=== PATIENT | male | born 1975 | race Caucasian/White ===

== ENCOUNTER 2016-10-06 03:34 | Inpatient (IN) | payer SELFPAY ==
[2016-10-06] VITALS (8 sets, daily range): BP systolic 96–126; BP diastolic 53–72; PULSE 61–95; RESP 16–20; TEMP 96–98.5; O2SAT 96–100
[~2016-10-06] VITALS: Ht 172.7 cm; Wt 65.9 kg
[2016-10-06] MEDS ORDERED: TETANUS/DIPHTHERIA TOXOID ADULT 0.5 ML VIAL IM ONE (03:45)
[2016-10-06] MEDS ORDERED: LORazepam 2 MG/ML VIAL ONE (03:47)
[2016-10-06] MEDS ORDERED: ONDANSETRON HCL 4 MG/2 ML VIAL ONE (03:48)
--- NOTE | 2016-10-06 03:58 | PD ---
HPI Chief Complaint: Injury Time Seen by Provider: 03:40 Travel History International Travel<30 days: No Contact w/Intl Traveler<30days: No Traveled to known affect area: No History of Present Illness HPI 41-year-old male presents via EMS for evaluation laceration to the volar left forearm. It was sustained this evening when he punched through a window. He reports that he was intoxicated. At this point in time he is very anxious which is limiting examination. Last tetanus vaccination unknown. No other complaints. PFSH Past Medical History Bipolar Disorder: Yes Anxiety: Yes Reproductive: No Tetanus Vaccination: > 5 Years Influenza Vaccination: No Social History Alcohol Use: Yes Tobacco Use: Yes Substance Use: Yes (Meth) Allergies-Medications (Allergen,Severity, Reaction): Coded Allergies: Keflex (Verified Allergy, Severe, 06/18/15) Penicillin (Verified Allergy, Severe, 06/18/15) Reported Meds & Prescriptions Reported Meds & Active Scripts Active No Active Prescriptions or Reported Medications Review of Systems ROS Limitations: Intoxication Except as stated in HPI: all other systems reviewed are Neg Physical Exam Exam Limitations: Intoxication Narrative GENERAL: Well-developed well-nourished male who is quite anxious. SKIN: Warm and dry. There is a 4-5 cm laceration to the volar left forearm with obvious tendon and muscle damage. HEAD: Atraumatic. Normocephalic. EYES: Pupils equal and round. No scleral icterus. No injection or drainage. ENT: No nasal bleeding or discharge. Mucous membranes pink and moist. NECK: Trachea midline. No JVD. CARDIOVASCULAR: Regular rate and rhythm. No murmur appreciated. RESPIRATORY: No accessory muscle use. Clear to auscultation. Breath sounds equal bilaterally. GASTROINTESTINAL: Abdomen soft, non-tender, nondistended. Hepatic and splenic margins not palpable. MUSCULOSKELETAL: Skin as noted above. Unable to perform focused assessment of left hand and wrist strength secondary to patient's limited cooperation. 2+ radial pulse. Capillary refill less than 2 seconds all digits left hand. NEUROLOGICAL: Awake and alert. No obvious cranial nerve deficits. Motor grossly within normal limits. Normal speech. PSYCHIATRIC: Anxious Data Data Last Documented VS Vital Signs Date Time Temp Pulse Resp B/P Pulse Ox O2 Delivery O2 Flow Rate FiO2 10/06/16 04:31 Room Air 10/06/16 03:39 98.5 89 20 126/72 99 Orders Tetanus/Diphtheria Tox Adult (Tetanus/Di (10/06/16 03:45) Forearm (2vws) (10/06/16 ) Lorazepam Inj (Ativan Inj) (10/06/16 03:47) Ondansetron Inj (Zofran Inj) (10/06/16 03:48) Clindamycin Inj (Cleocin Inj) (10/06/16 04:00) Wound Care (10/06/16 04:06) Complete Blood Count With Diff (10/06/16 04:06) Basic Metabolic Panel (Bmp) (10/06/16 04:06) Act Partial Throm Time (Ptt) (10/06/16 04:06) Prothrombin Time / Inr (Pt) (10/06/16 04:06) NPO (10/06/16 04:06) Consult Hand Surgery (10/06/16 ) (Hub Use Only)Inp Phy Cons/Ref (10/06/16 ) Admit Order (Ed Use Only) (10/06/16 04:54) Labs Laboratory Tests Test 10/06/16 04:08 White Blood Count 9.8 TH/MM3 Red Blood Count 4.76 MIL/MM3 Hemoglobin 14.3 GM/DL Hematocrit 41.7 % Mean Corpuscular Volume 87.5 FL Mean Corpuscular Hemoglobin 30.1 PG Mean Corpuscular Hemoglobin 34.4 % Concent Red Cell Distribution Width 13.4 % Platelet Count 193 TH/MM3 Mean Platelet Volume 8.4 FL Neutrophils (%) (Auto) 56.3 % Lymphocytes (%) (Auto) 34.8 % Monocytes (%) (Auto) 4.3 % Eosinophils (%) (Auto) 4.0 % Basophils (%) (Auto) 0.6 % Neutrophils # (Auto) 5.5 TH/MM3 Lymphocytes # (Auto) 3.4 TH/MM3 Monocytes # (Auto) 0.4 TH/MM3 Eosinophils # (Auto) 0.4 TH/MM3 Basophils # (Auto) 0.1 TH/MM3 CBC Comment DIFF FINAL Differential Comment Prothrombin Time 10.2 SEC Prothromb Time International 0.9 RATIO Ratio Activated Partial 26.1 SEC Thromboplast Time Sodium Level 142 MEQ/L Potassium Level 3.9 MEQ/L Chloride Level 108 MEQ/L Carbon Dioxide Level 24.4 MEQ/L Anion Gap 10 MEQ/L Blood Urea Nitrogen 10 MG/DL Creatinine 0.85 MG/DL Estimat Glomerular Filtration 98 ML/MIN Rate Random Glucose 106 MG/DL Calcium Level 8.3 MG/DL [facility] Medical Decision Making Medical Screen Exam Complete: Yes Emergency Medical Condition: Yes Medical Record Reviewed: Yes Differential Diagnosis Tendon laceration, neurovascular laceration, muscle laceration, cutaneous laceration, retained foreign body Narrative Course The patient has a large laceration to the volar left forearm with obvious tendon and muscle damage. The wound was anesthetized and thoroughly irrigated. Local wound care provided. The patient was given a dose of clindamycin. He was given a tetanus vaccination. Discussed with on-call hand surgeon Dr. Lara who would like the patient to remain npo, he would like the patient admitted to the medical service with consultation to himself, likely operative repair today. Diagnosis Primary Impression: Laceration of left forearm with tendon involvement Qualified Code: S51.812A - Laceration of left forearm with tendon involvement , initial encounter Admitting Information Admitting Physician Requests: Observation Scripts No Active Prescriptions or Reported Meds John Bolton Oct 06, 2016 03:58 John Bolton Oct 06, 2016 03:58
[2016-10-06] MEDS ORDERED: CLINDAMYCIN INJ 600 MG in SODIUM CHLORIDE 0.9% INJ 100 ML IV ONE (04:00)
[2016-10-06 04:24] LABS: AUTOMATED NEUTROPHIL # 5.5 TH/MM3 (1.8-7.7); BASOPHIL # 0.1 TH/MM3 (0-0.2); BASOPHIL % 0.6 % (0.0-2.0); EOSINOPHIL # 0.4 TH/MM3 (0-0.4); HEMATOCRIT 41.7 % (39.0-51.0); HEMO FLAGS DIFF FINAL; LYMPH % 34.8 % (9.0-44.0); LYMPHOCYTE # 3.4 TH/MM3 (1.0-4.8); MEAN CELL VOLUME 87.5 FL (80.0-100.0); MEAN CORPUSCULAR HEMOGLOBIN 30.1 PG (27.0-34.0); MEAN CORPUSCULAR HGB CONC 34.4 % (32.0-36.0); MONO % 4.3 % (0.0-8.0); NEUT % 56.3 % (16.0-70.0); PLATELET COUNT 193 TH/MM3 (150-450); RED BLOOD COUNT 4.76 MIL/MM3 (4.50-5.90); RED CELL DISTRIBUTION WIDTH 13.4 % (11.6-17.2); WHITE BLOOD COUNT 9.8 TH/MM3 (4.0-11.0)
[2016-10-06 04:34] LABS: APTT (PATIENT) 26.1 SEC (24.3-30.1); INTERNATIONAL NORMALIZED RATIO 0.9 RATIO; PROTHROMBIN TIME - PATIENT 10.2 SEC (9.8-11.6)
[2016-10-06 04:42] LABS: BICARBONATE 24.4 MEQ/L (21.0-32.0); POTASSIUM 3.9 MEQ/L (3.5-5.1)
--- NOTE | 2016-10-06 04:49 | RADRPT ---
EXAM DATE/TIME: 10/06/2016 04:05 [facility] COMPARISON: No previous studies available for comparison. INDICATIONS : Laceration left forearm. MEDICAL HISTORY : None. SURGICAL HISTORY : None. ENCOUNTER: Initial ACUITY: 1 day PAIN SCORE: 8/10 LOCATION: Left upper extremity FINDINGS: Two view examination of the left forearm demonstrates no evidence of fracture or dislocation. Bony m ineralization is normal. Soft tissue laceration is present. CONCLUSION: 1. There is no evidence of acute fracture. Ti Easton MD on October 06, 2016 at 4:47 Board Certified Radiologist. This report was verified electronically.
[2016-10-06] MEDS ORDERED: LORazepam 2 MG/ML VIAL IM ONE (05:00)
[2016-10-06] MEDS ORDERED: ONDANSETRON HCL 4 MG/2 ML VIAL IVP PRN (05:00)
[2016-10-06] MEDS ORDERED: NALOXONE HCL 0.4 MG/ML AMP IV PRN (05:00)
[2016-10-06] MEDS ORDERED: LORazepam 2 MG TAB PO PRN (05:00)
[2016-10-06] MEDS ORDERED: SODIUM CHLORIDE 0.9% FLUSH 10 ML FLUSH IV FLUSH PRN (05:00)
[2016-10-06] MEDS ORDERED: HEPARIN SODIUM - SQ 10,000 UNITS/ML VIAL SQ SCH (05:00)
[2016-10-06] MEDS ORDERED: ACETAMINOPHEN 325 MG TAB PO PRN (05:00)
[2016-10-06] MEDS ORDERED: HYDROmorphone HCL PF 1 MG/ML VIAL IV PRN ×3 (05:00→21:45)
[2016-10-06] MEDS ORDERED: LORazepam 2 MG/ML VIAL IV PUSH PRN ×4 (05:00)
[2016-10-06] MEDS ORDERED: LORazepam 1 MG TAB PO PRN (05:00)
[2016-10-06] MEDS ORDERED: FLUMAZENIL 0.5 MG/5 ML VIAL IV PUSH PRN (05:00)
[2016-10-06] MEDS ORDERED: LORazepam 2 MG/ML VIAL IV PUSH ONE (05:15)
[2016-10-06] MEDS: D5-1/2 NS + KCL 20 MEQ INJ 1,000 ML IV SCH ×3 (05:26→22:09)
[2016-10-06 07:02] LABS: BLOOD GAS BASE EXCESS -1.5 mmol/L (-2-2); BLOOD GAS CARBOXYHEMOGLOBIN 2.9 % (0-4); BLOOD GAS HCO3 23 mmol/L (22-26); BLOOD GAS O2 HGB SATURATION 95 % (90-100); BLOOD GAS OXYGEN CONTENT 19.3 Vol % (12.0-20.0); BLOOD GAS PCO2 43 mmHg (38-42); BLOOD GAS PO2 138 mmHg (61-120); BLOOD GAS TOTAL HGB 14.4 G/DL (12.0-16.0); CRITICAL VALUE NO; DRAW SITE RT RADIAL; LITER FLOW 2 L/M; NUMBER OF ARTERIAL PUNCTURES 1; OXYGEN DEVICE NASAL CANNULA; STAT YES; TEMP CORR TO 98.6; ULNAR PULSE PRESENT
[2016-10-06] MEDS ORDERED: LACTATED RINGER'S 1000 ML INJ 1,000 ML IV ONE ×2 (07:30)
[2016-10-06] MEDS ORDERED: MULTIVITAMIN INJ 10 ML, THIAMINE INJ 100 MG, FOLIC ACID INJ 1 MG in SODIUM CHLOR 0.45% ... IV ONE (07:30)
--- NOTE | 2016-10-06 07:30 | PD.CONS ---
[facility] Service Critical Care Medicine Consult Requested By Rapid Response team Reason for Consult hypoxia, altered mental status Primary Care Physician No Primary Care Physician History of Present Illness This is a 41yM with a history of bipolar disorder, anxiety disorder, and etoh dependence who presents to the emergency department today after drinking etoh and punching through a window where he sustained tendon laceration injury to his left forearm. In the emergency department, he was agitated and combative and received 3mg ativan iv. He was admitted to the hospital for planned operative washout, debridement, and possible tendon repair today. He arrived to the floor with spo2 76% and obtundation. rapid response was called. I arrived at the rapid response, and the patient was minimally responsive. He did arouse to deep sternal rub and answered questions and followed commands. The patient was given 0.4mg narcan iv with minimal improvement. Patient is being transferred to ICU for continued management of his altered mental status and hypoxia. No additional history is obtainable from the patient. Review of Systems ROS Limitations: Clinical Condition, Intoxication, Altered Mental Status Past Family Social History Allergies: Coded Allergies: Keflex (Verified Allergy, Severe, 06/18/15) Penicillin (Verified Allergy, Severe, 06/18/15) Past Medical History Bipolar disorder Anxiety disorder Etoh dependence Past Surgical History unknown and unobtainable secondary to the clinical condition of the patient. Reported Medications unknown and unobtainable secondary to the clinical condition of the patient. Active Ordered Medications See MAR Family History unknown and unobtainable secondary to the clinical condition of the patient. Social History +etoh, +tob, +meth Physical Exam Vital Signs Vital Signs Date Time Temp Pulse Resp B/P Pulse Ox O2 Delivery O2 Flow Rate FiO2 10/06/16 07:03 98 2.00 10/06/16 04:31 Room Air 10/06/16 03:39 98.5 89 20 126/72 99 Physical Exam disheveled middle-aged male, obtunded. bloody clothes in place. equal and clear breath sounds, marked hypopnea. left forearm wrapped in alan bandage. Laboratory Laboratory Tests Test 10/06/16 10/06/16 04:08 06:50 White Blood Count 9.8 Red Blood Count 4.76 Hemoglobin 14.3 Hematocrit 41.7 Mean Corpuscular Volume 87.5 Mean Corpuscular Hemoglobin 30.1 Mean Corpuscular Hemoglobin 34.4 Concent Red Cell Distribution Width 13.4 Platelet Count 193 Mean Platelet Volume 8.4 Neutrophils (%) (Auto) 56.3 Lymphocytes (%) (Auto) 34.8 Monocytes (%) (Auto) 4.3 Eosinophils (%) (Auto) 4.0 Basophils (%) (Auto) 0.6 Neutrophils # (Auto) 5.5 Lymphocytes # (Auto) 3.4 Monocytes # (Auto) 0.4 Eosinophils # (Auto) 0.4 Basophils # (Auto) 0.1 CBC Comment DIFF FINAL Differential Comment Prothrombin Time 10.2 Prothromb Time International 0.9 Ratio Activated Partial 26.1 Thromboplast Time Sodium Level 142 Potassium Level 3.9 Chloride Level 108 Carbon Dioxide Level 24.4 Anion Gap 10 Blood Urea Nitrogen 10 Creatinine 0.85 Estimat Glomerular Filtration 98 Rate Random Glucose 106 Calcium Level 8.3 Blood Gas Puncture Site RT RADIAL Blood Gas Patient Temperature 98.6 Blood Gas HCO3 23 Blood Gas Base Excess -1.5 Blood Gas Oxygen Saturation 95 Arterial Blood pH 7.35 Arterial Blood Partial 43 Pressure CO2 Arterial Blood Partial 138 Pressure O2 Arterial Blood Oxygen Content 19.3 Arterial Blood 2.9 Carboxyhemoglobin Arterial Blood Methemoglobin 1.0 Blood Gas Hemoglobin 14.4 Oxygen Delivery Device NASAL CANNULA Blood Gas Liter Flow 2 Result Diagram: 10/06/16 0408 10/06/16 0408 Imaging Last Impressions Radius/Ulna X-Ray 10/06/16 0000 Signed Impressions: Service Date/Time: Thursday, October 06, 2016 04:05 - CONCLUSION: 1. There is no evidence of acute fracture. Ti Easton MD Assessment and Plan Assessment and Plan Assessment: 41yM with acute toxic encephalopathy and hypoxia secondary to etoh overdose and intoxication. Active Problems: Acute Toxic Encephalopathy Acute hypoxemia Etoh dependence Plan: -- transfer to ICU -- will hold off on flumazenil due to risk of seizures in patients with etoh dependence -- iv thiamine -- banana bag -- 2L LR bolus -- send etoh level, tyenol, asa levels, UDS, lft -- q1h neuro checks -- still cleared for OR for washout today. Critical Care time: 36 minutes, exclusive of separately billable procedures. Anthony Aparicio MD Oct 06, 2016 07:30
--- NOTE | 2016-10-06 07:32 | RADRPT ---
EXAM DATE/TIME: 10/06/2016 07:12 [facility] COMPARISON: No previous studies available for comparison. INDICATIONS : Halicat. MEDICAL HISTORY : None. SURGICAL HISTORY : None. ENCOUNTER: Subsequent ACUITY: 2 days PAIN SCORE: Non-responsive. LOCATION: Bilateral chest FINDINGS: Portable AP view of the chest demonstrates a normal-sized cardiac silhouette. No effusion, consolidat ion, or pneumothorax is visualized. The bones and soft tissues demonstrate no acute abnormality. Ther e is mild atelectasis at the lung bases. CONCLUSION: Mild atelectasis at the lung bases. Otherwise, no acute finding is identified. Renny Duran MD on October 06, 2016 at 7:30 Board Certified Radiologist. This report was verified electronically.
--- NOTE | 2016-10-06 08:49 | MB ---
cc: ZHANG GUO MD DATE OF CONSULTATION: 10/06/2016 REASON FOR CONSULTATION Left forearm laceration. HISTORY OF PRESENT ILLNESS The patient is a 41-year-old male with history of bipolar disorder and ETOH dependence, presented to the ED last night after puncturing through the window when he sustained laceration to the left forearm. The patient became obtunded and rapid response team was called and was transferred to the ICU. He was examined in the ICU. He is cooperative to a minimal extent, he does follow commands to a minimal extent. The patient is hemodynamically stable on examination. There is a dressing over the left forearm region. Examination after removal of dressing reveals a curvilinear laceration over the volar aspect of the mid forearm measuring about 7-8 cm with exposed tendons and muscles. He has intact capillary refill. He has intact radial pulses. The patient is able to actively flex the fingers and the thumb. Sensation appeared to be intact based on his minimal response. The patient is able to flex and extend the wrist. Strength could not be tested. X-rays of the left forearm was reviewed and shows soft tissue defect over the volar aspect of the mid forearm. No evidence of fracture noted. ASSESSMENT 41-year-old male with ETOH dependence and laceration through the left forearm volar aspect, exposed tendons. PLAN Plan will be for exploration and washout, repair of flexor tendon, possible nerve repair. Consent has been obtained by two physician's consent as the patient is not in a situation to give a formal consent. Zhang Guo MD SE/IFEOMA /8:08 AM /8:33 AM
[2016-10-06] MEDS ORDERED: THIAMINE HCL 100 MG TAB PO SCH (09:00)
[2016-10-06] MEDS: SODIUM CHLORIDE 0.9% FLUSH 10 ML FLUSH IV FLUSH SCH ×2 (09:00→22:09)
[2016-10-06] MEDS: FOLIC ACID 1 MG TAB PO SCH (09:00)
[2016-10-06] MEDS ORDERED: NEOSTIGMINE METHYLSULFATE 10 MG/10 ML VIAL IV PUSH ONE (12:00)
[2016-10-06] MEDS ORDERED: ONDANSETRON HCL 4 MG/2 ML VIAL IV PUSH ONE (12:00)
[2016-10-06] MEDS ORDERED: PROPOFOL 200 MG/20 ML AMP IV ONE (12:00)
[2016-10-06] MEDS ORDERED: SODIUM CHLOR 0.9% 250 ML INJ 250 ML IV ONE (12:00)
--- NOTE | 2016-10-06 12:28 | HHI.HP ---
HPI Service [facility] Primary Care Physician No Primary Care Physician Admission Diagnosis laceration left forearm Diagnoses: Chief Complaint: left FA laceration, altered Travel History International Travel<30 Days: No Contact w/Intl Traveler <30 Da: No Traveled to Known Affected Are: No History of Present Illness This a 41-year-old male with significant past medical history of bipolar disorder, anxiety, EtOH dependence presented to the emergency room for evaluation of laceration to the volar forearm. Apparently the patient punched through a window while intoxicated. In the emergency room, patient was agitated and combative and received 20 mg of Ativan. And surgery has been consulted and the plan is for operative washout, debridement and possible tendon repair. Apparently when he arrived on the floor he was noted hypoxic sats of 76% and obtunded. Rapid response was called and patient was responsive to deep sternal rub and answered some questions. He was given Narcan with minimal improvement. Patient was transferred to ICU for continued management and critical care has been consulted. At this time, patient is more awake, he knows is in the hospital unable to provide name. He is currently nothing by mouth awaiting to go to work. Laboratory workup completed in the emergency room was essentially unremarkable. Patient is admitted for further evaluation and treatment. Review of Systems ROS Limitations: Clinical Condition, Intoxication, Altered Mental Status Other left arm pain Past Family Social History Past Medical History Past Medical History Bipolar disorder Anxiety disorder Etoh dependence Past Surgical History unable to obtain Reported Medications Reported Meds & Active Scripts Active No Active Prescriptions or Reported Medications Allergies: Coded Allergies: Keflex (Verified Allergy, Severe, 06/18/15) Penicillin (Verified Allergy, Severe, 06/18/15) Active Ordered Medications Inpatient Medications Acetaminophen (Tylenol) 650 mg Q4H PRN PO TEMP > 100.4; Start 10/06/16 at 05:00 Clindamycin Phosphate 600 mg/ Sodium Chloride 104 ml @ 208 mls/hr ONCE ONCE IV Last administered on 10/06/16t 04:22; Start 10/06/16 at 04:00; Stop 10/06/16 at 04:29; Status DC Flumazenil (Romazicon Inj) 0.2 mg Q1M PRN IV PUSH SEE LABEL COMMENTS; Start 10/06/16 at 05:00 Folic Acid (Folate) 1 mg DAILY PO ; Start 10/06/16 at 09:00; Stop 10/11/16 at 08: 59 Heparin Sodium (Porcine) (Heparin Inj) 5,000 units Q12H SQ Last administered on 10/06/16 05:26; Start 10/06/16 at 05:00 Hydromorphone HCl (Dilaudid Pf Inj) 1 mg Q3H PRN IV Pain 6-10;if unable to take PO; Start 10/06/16 at 05:00; Stop 10/06/16 at 07:22; Status DC Lactated Ringer's (Lr 1000 ml Inj) 1,000 ml @ 999 mls/hr BOLUS ONCE IV ; Start 10/06/16 at 07:30; Stop 10/06/16 at 08:30; Status DC Lorazepam (Ativan Inj) 2 mg Q15M PRN IV PUSH CIWA > 20; Start 10/06/16 at 05:00 ; Stop 10/06/16 at 07:22; Status DC Lorazepam (Ativan) 2 mg Q2H PRN PO CIWA 11-14; Start 10/06/16 at 05:00; Stop 10/06/16 at 07:22; Status DC Lorazepam 1 mg 1 mg ONCE ONCE IV PUSH Last administered on 10/06/16 05:15; Start 10/06/16 at 05:15; Stop 10/06/16 at 05:16; Status DC Multivitamins 1 tab 1 tab DAILY PO ; Start 10/07/16 at 09:00 Multivitamins/ Thiamine HCl/ Folic Acid/Sodium Chloride (Mvi-12 Inj/ Thiamine Inj/ Folvite Inj/1/2 NS 500 ml Inj) 511.2 ml @ 125 mls/hr ONCE ONCE IV Last administered on 10/06/16 09:30; Start 10/06/16 at 07:30; Stop 10/06/16 at 11:35; Status DC Naloxone HCl (Narcan Inj) 0.4 mg UNSCH PRN IV SEE LABEL COMMENTS Last administered on 10/06/16 07:00; Start 10/06/16 at 05:00 Ondansetron HCl (Zofran Inj) 4 mg Q6H PRN IVP NAUSEA OR VOMITING; Start at 05:00 Potassium Chloride/Dextrose/ Sod Cl (D5-1/2 NS + KCl 20 Meq Inj) 1,000 ml @ 100 mls/hr Q10H IV Last administered on 10/06/16 05:26; Start 10/06/16 at 04:57 Sodium Chloride (NS Flush) 2 ml BID IV FLUSH ; Start 10/06/16 at 09:00 Tetanus/ Diphtheria Toxoids 0.5 ml 0.5 ml ONCE ONCE IM Last administered on 10/06 04:22; Start 10/06/16 at 03:45; Stop 10/06/16 at 03:46; Status DC Thiamine HCl (Vitamin B1) 100 mg DAILY PO ; Start 10/06/16 at 09:00; Stop at 09:00; Status DC Thiamine HCl 100 mg 100 mg DAILY PO ; Start 10/09/16 at 09:00 Thiamine HCl/ Sodium Chloride (Thiamine Inj/NS Inj) 101 ml @ 101 mls/hr Q24H IV ; Start 10/07/16 at 01:45; Stop 10/08/16 at 02:44 Family History Unable to obtain Social History Works as a cashier and waiter/waitress, not , has no children. Positive for tobacco abuse, + ETOH, + meth Physical Exam Vital Signs Vital Signs Date Time Temp Pulse Resp B/P Pulse Ox O2 Delivery O2 Flow Rate FiO2 10/06/16 07:03 98 2.00 10/06/16 04:31 Room Air 10/06/16 03:39 98.5 89 20 126/72 99 Physical Exam GENERAL: This is a well-nourished, well-developed patient, in no apparent distress. SKIN: No rashes, ecchymoses or lesions. Cool and dry. HEAD: Atraumatic. Normocephalic. No temporal or scalp tenderness. EYES: Pupils equal round and reactive. Extraocular motions intact. No scleral icterus. No injection or drainage. ENT: Nose without bleeding, purulent drainage or septal hematoma. Throat without erythema, tonsillar hypertrophy or exudate. Uvula midline. Airway patent. NECK: Trachea midline. No JVD or lymphadenopathy. Supple, nontender, no meningeal signs. CARDIOVASCULAR: Regular rate and rhythm without murmurs, gallops, or rubs. RESPIRATORY: Clear to auscultation. Breath sounds equal bilaterally. No wheezes , rales, or rhonchi. GASTROINTESTINAL: Abdomen soft, non-tender, nondistended. No hepato-splenomegaly , or palpable masses. No guarding. MUSCULOSKELETAL: Left forearm has a dressing that is intact. Intact sensation to left fingertips, capillary refill less than 3 seconds. No other joint abnormalities. NEUROLOGICAL: Awakes to voice, oriented 3. Somnolent but awakes to voice. No focal deficits. Laboratory Laboratory Tests Test 10/06/16 10/06/16 04:08 06:50 White Blood Count 9.8 Red Blood Count 4.76 Hemoglobin 14.3 Hematocrit 41.7 Mean Corpuscular Volume 87.5 Mean Corpuscular Hemoglobin 30.1 Mean Corpuscular Hemoglobin 34.4 Concent Red Cell Distribution Width 13.4 Platelet Count 193 Mean Platelet Volume 8.4 Neutrophils (%) (Auto) 56.3 Lymphocytes (%) (Auto) 34.8 Monocytes (%) (Auto) 4.3 Eosinophils (%) (Auto) 4.0 Basophils (%) (Auto) 0.6 Neutrophils # (Auto) 5.5 Lymphocytes # (Auto) 3.4 Monocytes # (Auto) 0.4 Eosinophils # (Auto) 0.4 Basophils # (Auto) 0.1 CBC Comment DIFF FINAL Differential Comment Prothrombin Time 10.2 Prothromb Time International 0.9 Ratio Activated Partial 26.1 Thromboplast Time Sodium Level 142 Potassium Level 3.9 Chloride Level 108 Carbon Dioxide Level 24.4 Anion Gap 10 Blood Urea Nitrogen 10 Creatinine 0.85 Estimat Glomerular Filtration 98 Rate Random Glucose 106 Calcium Level 8.3 Blood Gas Puncture Site RT RADIAL Blood Gas Patient Temperature 98.6 Blood Gas HCO3 23 Blood Gas Base Excess -1.5 Blood Gas Oxygen Saturation 95 Arterial Blood pH 7.35 Arterial Blood Partial 43 Pressure CO2 Arterial Blood Partial 138 Pressure O2 Arterial Blood Oxygen Content 19.3 Arterial Blood 2.9 Carboxyhemoglobin Arterial Blood Methemoglobin 1.0 Blood Gas Hemoglobin 14.4 Oxygen Delivery Device NASAL CANNULA Blood Gas Liter Flow 2 Result Diagram: 10/06/16 0408 10/06/16 0408 Imaging Last Impressions Radius/Ulna X-Ray 10/06/16 0000 Signed Impressions: Service Date/Time: Thursday, October 06, 2016 04:05 - CONCLUSION: 1. There is no evidence of acute fracture. Ti Easton MD Chest X-Ray 10/06/16 0000 Signed Impressions: Service Date/Time: Thursday, October 06, 2016 07:12 - CONCLUSION: Mild atelectasis at the lung bases. Otherwise, no acute finding is identified. Renny Duran MD Assessment and Plan Problem List: (1) Laceration of left forearm with tendon involvement (2) Drug-induced mood disorder (3) History of substance abuse (4) Anxiety (5) Bipolar disorder Assessment and Plan Admit to Dr. Ramírez 41 -year-old male with acute alcohol intoxication, punched window, sustained laceration of left forearm with tendon involvement. -Hand surgery has been consulted, the plan is for operative washout, debridement and possible tendon repair today -Continue with clindamycin 600 mg IV every 8 -Pain management Acute encephalopathy secondary to alcohol intoxication History of substance abuse -Continue neuro checks -MVI, thiamine -Continue with IV fluids Home medications reviewed, initiated as indicated Heparin for DVT prophylaxis Plan of care discussed with the patient, attending and registered nurse. Further management of the patient will be dependent hospital course This patient was seen by myself and Dr. Ramírez, this H/P is written on his behalf Physician Certification 2 Midnight Certification Type: Admission for Inpatient Services Order for Inpatient Services The services are ordered in accordance with Medicare regulations or non- Medicare payer requirements, as applicable. In the case of services not specified as inpatient-only, they are appropriately provided as inpatient services in accordance with the 2-midnight benchmark. Estimated LOS (days): 2 2 days is the estimated time the patient will need to remain in the hospital, assuming treatment plan goals are met and no additional complications. Post-Hospital Plan: Not yet determined Problem Qualifiers (1) Laceration of left forearm with tendon involvement: Qualified Code: S51.812A - Laceration of left forearm with tendon involvement, initial encounter (2) Bipolar disorder: Qualified Code: F31.9 - Bipolar affective disorder, remission status unspecified Ora Shankar Oct 06, 2016 12:28
[2016-10-06] MEDS: CLINDAMYCIN PHOS 600 MG/4 ML VIAL ONE ×2 (14:17→14:45)
[2016-10-06 14:44] LABS: ALT (GPT) 20 U/L (12-78); AST (GOT) 20 U/L (15-37)
[2016-10-06 14:46] LABS: ALKALINE PHOSPHATASE 84 U/L (45-117); INDIRECT BILIRUBIN 0.3 MG/DL (0.0-0.8); TOTAL BILIRUBIN ADULT 0.4 MG/DL (0.2-1.0)
[2016-10-06] MEDS ORDERED: NEOMYCIN/POLYMYXIN 1 ML G.U. IRRIGANT IR ONE (14:52)
[2016-10-06] MEDS ORDERED: LIDOCAINE HCL 2% 50 ML VIAL INFIL ONE (14:52)
[2016-10-06] MEDS ORDERED: BUPIVACAINE HCL PF 0.5% 30 ML VIAL INFIL ONE (14:52)
[2016-10-06] MEDS ORDERED: BACITRACIN TOP OINT 15 GM TUBE TOP ONE (14:52)
[2016-10-06 15:04] LABS: ACETAMINOPHEN LESS THAN 2.0 MCG/ML (10.0-30.0)
--- NOTE | 2016-10-06 16:20 | PD.OP ---
Operative Report Preoperative Diagnosis: (1) Laceration of left forearm with tendon involvement Postoperative Diagnosis: (1) Laceration of left forearm with tendon involvement Procedure: exploration, repair flexor carpi radialis tendon, palmaris longus and lacerations left forearm Anesthesia: general Surgeon: Jonas Lara Hand Crown Pouncer(s): roberto carlos Operation and Findings: complex laceration volar aspect of the midforearm laceration of the flexor carpi radialis, palmaris longus tendon, partial laceration of the FDS muscle belly Jonas Lara MD Oct 06, 2016 16:20
[2016-10-06] MEDS ORDERED: MIDAZOLAM HCL 2 MG/2 ML VIAL ONE (16:29)
[2016-10-06] MEDS ORDERED: fentaNYL CITRATE 250 MCG/5 ML AMP ONE (16:30)
--- NOTE | 2016-10-06 16:39 | MP ---
cc: ZHANG GUO MD DATE OF SURGERY: 10/06/2016. PREOPERATIVE DIAGNOSIS: Laceration left forearm with flexor tendon involvement. POSTOPERATIVE DIAGNOSIS: Laceration left forearm with laceration of the flexor carpi radialis, palmaris longus and partial laceration of the FDS muscle. OPERATIVE PROCEDURE PERFORMED: Exploration and repair flexor carpi radialis, palmaris longus and lacerations left forearm. SURGEON: Zhang Guo M.D. ANESTHESIA: General. ESTIMATED BLOOD LOSS: 10 mL TOURNIQUET TIME: 37 minutes at 250 mmHg. COMPLICATIONS: No complications. DISPOSITION: The patient was recovered sent to the recovery room in stable condition. INDICATIONS FOR THE PROCEDURE: The patient is a 41-year-old male with EtOH dependence who presented last night with a laceration of the left forearm when he punched a glass window. The patient was unable to give history. Initially he was intoxicated. He was taken to the ICU for low saturation and rapid response. On examination, he had a complex laceration over the volar aspect of the mid forearm region measuring about 7 to 8 cm and another laceration over the ulnar aspect of the forearm and over the dorsal aspect of the hand. There was evidence of exposed tendons. The patient was able to actively flex the fingers and weakness of the wrist flexion was noted. He had intact sensation and intact distal circulation with palpable pulses. The patient was consented for exploration and repair of the flexor tendons and possible repair of nerve. DESCRIPTION OF THE PROCEDURE IN DETAIL: The patient was brought to the operating room. Under general anesthesia, the left upper extremity was thoroughly prepped and draped. After limb elevation, the tourniquet was inflated to 250 mmHg. Intraoperative findings included a complex laceration over the volar aspect of the mid forearm with jagged skin edges. The flexor carpi radialis was completely transected. There was a partial transection of the palmaris longus of about 80%. There was also a partial laceration of the muscle belly of the flexor digitorum profundus. The radial artery was intact. The ulnar artery was also intact. Thorough wash was given using normal saline mixed with irrigant. About a liter of solution was used. The flexor carpi radialis was then approximated using 3-0 Ethibond stitches in a multiple cross cruciate fashion with eight strands crossing the repair site and this was then reinforced with fine nylon in a continuous circumferential fashion. The palmaris longus was then approximated using 3-0 Ethibond in a cross cruciate fashion with four strands crossing the repair site. This was reinforced with 5-0 Prolene. The tourniquet was deflated. Total tourniquet time was 37 minutes. Bleeding points were cauterized with bipolar cautery. Skin flaps were then approximated using 4-0 nylon in a horizontal mattress interrupted fashion. I was able to obtain complete closure with the flap. The patient had two more lacerations, one over the ulnar aspect and one over the dorsal aspect of the hand each measuring about 2 to 3 cm, which were sutured with 4-0 nylon in a horizontal mattress interrupted fashion. He had good distal circulation at the end of the procedure. About 4 mL of local anesthesia containing 1% Marcaine and 1% lidocaine was injected across the laceration site. A bulky hand dressing was applied which was held in place by Sof-Rol and dorsal block splint was applied keeping the wrist in flexion. The patient was recovered sent to the recovery room in stable condition. The plan will be to keep that part elevated and plan for discharge tomorrow morning if the patient is clinically stable. Zhang Gou MD SE/JIMMY /4:20 PM /4:28 PM
[2016-10-06] MEDS ORDERED: *morphine SULFATE 8 MG/ML PERIprocedure ONLY ONE (16:48)
[2016-10-06] MEDS ORDERED: ACETAMINOPHEN/HYDROcodone 325 MG/7.5 MG TAB PO PRN (21:45)
[2016-10-06] MEDS: ACETAMINOPHEN/HYDROcodone 325 MG/5 MG TAB PO PRN (22:08)
[2016-10-06] MEDS: CLINDAMYCIN INJ 600 MG in SODIUM CHLORIDE 0.9% INJ 100 ML IV SCH (22:09)
[2016-10-07] VITALS (7 sets, daily range): BP systolic 92–105; BP diastolic 52–65; PULSE 58–70; RESP 16–18; TEMP 96.7–97.6; O2SAT 96–100
[2016-10-07] MEDS ORDERED: THIAMINE INJ 100 MG in SODIUM CHLORIDE 0.9% INJ 100 ML IV SCH (01:45)
[2016-10-07] MEDS: CLINDAMYCIN INJ 600 MG in SODIUM CHLORIDE 0.9% INJ 100 ML IV SCH ×2 (04:52→13:27)
[2016-10-07] MEDS: HEPARIN SODIUM - SQ 10,000 UNITS/ML VIAL SQ SCH ×2 (04:52→17:13)
[2016-10-07] MEDS: FOLIC ACID 1 MG TAB PO SCH (07:41)
[2016-10-07] MEDS: ACETAMINOPHEN/HYDROcodone 325 MG/5 MG TAB PO PRN ×3 (07:41→17:13)
[2016-10-07] MEDS ORDERED: MULTIVITAMIN TAB PO SCH (09:00)
[2016-10-07] MEDS: SODIUM CHLORIDE 0.9% FLUSH 10 ML FLUSH IV FLUSH SCH (09:00)
--- NOTE | 2016-10-07 10:42 | HHI.PR ---
Subjective Remarks Has some pain in arm, rates it a 6/10, throbbing, no chest pain, sob/n/v eating ok. Objective Vitals Vital Signs Date Time Temp Pulse Resp B/P Pulse Ox O2 Delivery O2 Flow Rate FiO2 10/07/16 07:32 96.9 60 18 96/58 98 10/07/16 04:25 96.7 60 16 97/65 97 10/07/16 02:11 21 10/07/16 00:20 97.6 58 16 105/62 98 10/06/16 20:20 96.0 65 16 112/64 99 10/06/16 17:55 96.6 95 18 113/62 98 10/06/16 17:15 98.4 97 15 106/60 99 Nasal Cannula 3 10/06/16 17:00 104 15 115/59 99 Nasal Cannula 3 10/06/16 16:45 98 15 116/61 98 Nasal Cannula 3 10/06/16 16:30 98.2 106 15 123/71 98 Nasal Cannula 3 10/06/16 12:00 68 10/06/16 12:00 97.9 68 19 96/58 100 I/O 10/06/16 10/06/16 10/06/16 10/07/16 10/07/16 10/07/16 07:00 15:00 23:00 07:00 15:00 23:00 Intake Total 0 ml 965 ml 240 ml Output Total 0 ml 205 ml 300 ml Balance 0 ml 760 ml -60 ml Intake Oral 0 ml 240 ml 240 ml IV Total 75 ml Other 650 ml Output Urine Total 0 ml 200 ml 300 ml Estimated Blood Loss 5 ml # Bowel Movements 0 0 Result Diagram: 10/06/16 0408 10/06/16 0408 Imaging Last Impressions Radius/Ulna X-Ray 10/06/16 0000 Signed Impressions: Service Date/Time: Thursday, October 06, 2016 04:05 - CONCLUSION: 1. There is no evidence of acute fracture. Ti Easton MD Chest X-Ray 10/06/16 0000 Signed Impressions: Service Date/Time: Thursday, October 06, 2016 07:12 - CONCLUSION: Mild atelectasis at the lung bases. Otherwise, no acute finding is identified. Renny Duran MD Objective Remarks GENERAL: This is a well-nourished, well-developed patient, laying in bed asleep but easily arousable EYES: Extraocular motions intact. No scleral icterus. No injection or drainage. ENT: Nose without drainage. Airway patent. NECK: Trachea midline. CARDIOVASCULAR: Regular rate and rhythm without murmurs RESPIRATORY: Clear to auscultation. Breath sounds equal bilaterally. No wheezes GASTROINTESTINAL: Abdomen soft, non-tender, nondistended. No guarding. MUSCULOSKELETAL: Left forearm has a dressing that is intact, d/c/i. Intact sensation to left fingertips, capillary refill less than 2 seconds. sensation is intact per patient. NEUROLOGICAL: asleep but easily arousable, able to sit up for me to examine him A/P Assessment and Plan 41 -year-old male with acute alcohol intoxication, punched window, sustained laceration of left forearm with tendon involvement. -Hand surgery evaluated the patient and took him to OR for exploration and replair of flexor tendon involvement on 10/06/16 -Continue with clindamycin 600 mg IV every 8 -continue w Pain management Acute encephalopathy secondary to alcohol intoxication History of substance abuse -Continue neuro checks -MVI, thiamine -Continue with IV fluids Heparin for DVT prophylaxis Discharge Planning awaiting final recs from [facility] Angelina Lainez MD Oct 07, 2016 10:42
[2016-10-07] MEDS: D5-1/2 NS + KCL 20 MEQ INJ 1,000 ML IV SCH ×2 (10:57→11:48)
[2016-10-08] MEDS ORDERED: THIAMINE HCL 100 MG TAB PO SCH (09:00)
[2016-10-09] MEDS ORDERED: THIAMINE HCL 100 MG TAB PO SCH (09:00)
== END 2016-10-07 20:09 | disposition home or self-care (01) | DRG 500 ==
LOC: HOR 03:34 → NEDA 04:57 → OBSVTOIN 05:02 → N06B 06:39 → N03B 07:26 → N06B 17:20
PROVIDERS: ADMIT Internal Medicine; ATTEND Internal Medicine
PROC: 0KQB0ZZ Repair Left Lower Arm and Wrist Muscle, Open Approach (ICD-10-PCS; 2016-10-06)
PROC: 0HQGXZZ Repair Left Hand Skin, External Approach (ICD-10-PCS; 2016-10-06)
PROC: 0LQ60ZZ Repair Left Lower Arm and Wrist Tendon, Open Approach (ICD-10-PCS; principal; 2016-10-06 14:29)
DX: S56.222A Laceration of other flexor muscle, fascia and tendon at forearm level, left arm, initial encounter (principal); G92 Toxic encephalopathy; S51.812A Laceration without foreign body of left forearm, initial encounter; W25.XXXA Contact with sharp glass, initial encounter; S61.412A Laceration without foreign body of left hand, initial encounter; Y90.3 Blood alcohol level of 60-79 mg/100 ml; F10.220 Alcohol dependence with intoxication, uncomplicated; F31.9 Bipolar disorder, unspecified; F41.9 Anxiety disorder, unspecified; T51.91XA Toxic effect of unspecified alcohol, accidental (unintentional), initial encounter; R09.02 Hypoxemia; F19.94 Other psychoactive substance use, unspecified with psychoactive substance-induced mood disorder
CPT/HCPCS: 36600; 71010; 73090; 80048; 80076; 80307; 82805; 85025; 85610; 85730; 86850; 86900; 86901; 90471; 90714; 96365; 96375; J1644; J2060; J2250; J2270; J2310; J2405; J2710; J3010; J3411; J3480; J7050